=== PATIENT | male | born 2000 | race African-American/Black ===

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

== ENCOUNTER 2023-06-29 20:35 | Emergency (ER) | payer OTHER, SELFPAY ==
[2023-06-29] MEDS ORDERED: Acetaminophen 500 MG TAB ONE (21:04)
[2023-06-29] MEDS ORDERED: Penicillin V Potassium 250 MG TAB ONE (21:19)
== END 2023-06-29 21:33 | disposition home or self-care (01) ==
LOC: NAV ERS 20:35
DX: J02.0 Streptococcal pharyngitis (principal); Z20.822 Contact with and (suspected) exposure to COVID-19
CPT/HCPCS: 87430; 87635; 87804; 99283